=== PATIENT | female | born 1975 | race Caucasian/White ===

== ENCOUNTER → 2019-07-13 13:05 | Outpatient (POV) | payer BC, SELFPAY | PROVIDERS: Visit Provider Dermatology | DX: Z00.00 Encounter for general adult medical examination without abnormal findings (principal) ==

== ENCOUNTER → 2022-12-30 15:19 | Outpatient (CLI) | payer BC, SELFPAY ==
--- NOTE | 2022-12-30 15:28 | MR_ITS ---
FINAL REPORT CLINICAL HISTORY: right wrist pain X2 YEARS. prior surgery 2 years ago. numbness in fingers of right hand. FINDINGS: Multiplanar MR imaging of the right wrist was performed without contrast. There is 6 mm of ulnar negative variance. There is significant abnormal signal in the distal ulna with a small osteochondral lesion along its volar aspect measuring 4 mm with surrounding marrow edema. Findings are best seen on image 19 of series 10.. There is no evidence of intrinsic ligament injury. The triangular fibrocartilage is intact. The flexor and extensor tendons are intact. No soft tissue mass or cyst is identified. No focal abnormality is identified of the median nerve. IMPRESSION: Ulnar negative variance with small osteochondral lesion in the distal ulna with surrounding marrow edema. Reviewed, Interpreted and Dictated by Bryant Villalba MD Transcribed by Felice Stephens Authenticated and [facility]
== END ==
LOC: RAD 15:19
PROVIDERS: PCP Physician Assistant; Visit Provider Physician Assistant
DX: M25.531 Pain in right wrist (principal)
CPT/HCPCS: 73221

== ENCOUNTER → 2023-01-16 09:04 | Outpatient (CLI) | payer BC, SELFPAY ==
--- NOTE | 2023-01-16 09:08 | XR_ITS ---
FINAL REPORT CLINICAL HISTORY: wrist pain COMPARISON: none FINDINGS: RIGHT WRIST Three views demonstrate no acute fracture or dislocation. The visualized joint spaces are normally aligned. The soft tissues are unremarkable. IMPRESSION: No acute bony abnormality. Reviewed, Interpreted and Dictated by Armani Callahan III, MD Transcribed by Kalie Luna Authenticated and [facility]
== END ==
PROVIDERS: PCP Physician Assistant; Visit Provider Physician Assistant Surgical
DX: M25.531 Pain in right wrist (principal); Z98.890 Other specified postprocedural states
CPT/HCPCS: 73110

== ENCOUNTER → 2023-09-17 10:08 | Outpatient (CLI) | payer BC, SELFPAY ==
--- NOTE | 2023-09-17 10:08 | MR_ITS ---
FINAL REPORT CLINICAL HISTORY: RUE radiculopathy. BURNING PAIN DOWN RT ARM. HEADACHE FINDINGS: Multiplanar MR imaging of the cervical spine was performed without contrast. On the sagittal T2-weighted images, disc degeneration is seen throughout. There is no evidence of fracture. The vertebral alignment is normal. The cervical spinal cord has an unremarkable appearance without evidence of mass, edema or syrinx. No significant canal stenosis is identified. The cervicomedullary junction is normal. C2-3: There is no significant canal stenosis or neural foraminal narrowing. C3-4: Uncovertebral osteophytes are present. There is no significant canal stenosis or neural foraminal narrowing. C4-5: Small left paracentral disc protrusion is present. There is no significant canal stenosis or neural foraminal narrowing. C5-6: Disc osteophyte complex is present with moderate right and mild left neural foraminal narrowing. C6-7: An annular disc bulge is present. There is a small central disc protrusion. There is no significant canal stenosis or neural foraminal narrowing. C7-T1: Small central disc protrusion is present. There is no significant canal stenosis or neural foraminal narrowing. IMPRESSION: Multilevel disc protrusions as detailed above. Reviewed, Interpreted and Dictated by Armani Callahan III, MD Transcribed by Marcy Jean Authenticated and [facility]
== END ==
LOC: RAD 10:08
PROVIDERS: PCP Physician Assistant; Visit Provider Physician Assistant
DX: M79.2 Neuralgia and neuritis, unspecified (principal)
CPT/HCPCS: 72141; 76376

== ENCOUNTER → 2023-10-03 09:56 | Outpatient (POV) | payer BC, SELFPAY ==
[2023-10-03 10:39] VITALS: BP 117/77; PULSE 106; RESP 18; O2SAT 98; BMI 37.0
--- NOTE | 2023-10-03 11:20 | EXP.PAIN.OV ---
HPI Data of Consult Patient: new to practice Consult date: 10/03/23 Requesting Physician: Nile Damian CRNA Primary Care Provider: Heavenly Fuentes APRN Consult Narrative Reason for consult: Cervical neck pain. Right arm radicular pain. History of present illness: Ms. Rose is a 48 year old female who comes our office today for initial consultation regarding chronic cervical neck pain she describes as constant, dull, aching. Patient also complains of limited range of motion in the cervical spine with left and right rotation. Patient denies pain with flexion and/or extension. Patient also reports right arm radicular symptoms to the hand. She describes the right arm radicular symptoms as constant, dull, aching. Patient is status post right tendon transfer of the wrist. Patient states she is had pain in the wrist since surgery. However her radicular symptoms are more arm related. She rates her pain 6/10. Patient's cervical MRI shows multilevel degenerative disc with disc bulge C4-5, C5-6 and C6-7. CC: Nile Damian CRNA [facility] Disclaimer: The information contained in this section may have been updated after the patient was seen, as this information can be updated by other users. Medical History Osteochondral lesion Surgical History History of carpal tunnel surgery History of surgery on arm Hx of tonsillectomy Family History Other Diabetes Social History (Updated 10/03/23 @ 10:40 by Amita López RN) Smoking Status: Never smoker alcohol intake: never substance use type: denies use current occupational status: employed Travel in the last 8 weeks: None Meds Home Medications and Allergies Home Medications Medication Instructions Recorded Confirmed Type escitalopram oxalate 5 mg tablet 5 mg PO DAILY #30 tabs 06/18/23 10/03/23 Rx (Lexapro) gabapentin 300 mg capsule 300 mg PO BID #60 caps 09/11/23 10/03/23 Rx (Neurontin) phentermine 37.5 mg tablet 37.5 mg PO DAILY #30 tabs 09/11/23 10/03/23 Rx (Adipex-P) New Prescriptions to Start Prescriptions: Allergies Allergy/AdvReac Type Severity Reaction Status Date / Time naproxen Allergy Unknown Verified 09/11/23 10:57 allergy reaction Objective Vital signs: Pulse Resp BP Pulse Ox O2 Del Method 106 H 18 117/77 98 Room Air 10/03/23 10:39 10/03/23 10:39 10/03/23 10:39 10/03/23 10:39 10/03/23 10:39 Assessment and Plan *Assessment and plan (1) Degenerative disc disease, cervical: Status: Acute Category: Medical Code(s): M50.30 - Other cervical disc degeneration, unspecified cervical region (2) Bulge of cervical disc without myelopathy: Status: Acute Category: Medical Code(s): M50.30 - Other cervical disc degeneration, unspecified cervical region (3) Radicular pain of right upper extremity: Status: Chronic Category: Medical Code(s): M79.2 - Neuralgia and neuritis, unspecified Plan Discussed in detail with the patient regarding treatment options. I recommend physical therapy for the cervical neck pain as well as right arm radicular symptoms. Also, I will start the patient on diclofenac 75 mg 1 p.o. twice daily. Patient has negative heart history. She is taking gabapentin 300 mg 1 p.o. nightly. Patient reports gabapentin is helping to some degree. Patient will return to the clinic after completing physical therapy. We will review evaluate her symptoms at that time. I discussed with her regarding cervical epidural steroid injection in the near future. Answered her questions.
== END | disposition home or self-care (01) ==
PROVIDERS: PCP Nurse Practitioner; Visit Provider Nurse Anesthetist, Certified Registered
DX: M50.30 Other cervical disc degeneration, unspecified cervical region (principal); M79.2 Neuralgia and neuritis, unspecified; M50.20 Other cervical disc displacement, unspecified cervical region
CPT/HCPCS: 99202; G0463

== ENCOUNTER 2023-11-20 15:00 | Outpatient (RCR) | payer BC, SELFPAY | END 2023-11-20 16:00 | disposition home or self-care (01) | LOC: PT 15:00 | PROVIDERS: PCP Physician Assistant; Visit Provider Nurse Practitioner Family | DX: M50.222 Other cervical disc displacement at C5-C6 level (principal); M50.223 Other cervical disc displacement at C6-C7 level; M79.601 Pain in right arm | CPT/HCPCS: 97010; 97014; 97110; 97163; 97530; G0283 ==

== ENCOUNTER 2023-12-17 13:04 | Outpatient (CLI) | payer BC, SELFPAY ==
[2023-12-17 21:30] LABS: Amphetamine/Metha Screen,Urine Negative ng/ml (<1000); Barbiturates Screen,Urine Negative ng/ml (<200); Benzodiazepines Screen,Urine Negative ng/ml (<200); Cannabinoid Screen,Urine Negative ng/ml (<50); Cocaine Screen,Urine Negative ng/ml (<300); Methadone Screen,Urine Negative ng/ml (<300); Opiate Screen,Urine Negative ng/ml (<300); Phencyclidine Screen,Urine Negative ng/ml (<25)
[2023-12-21 17:23] LABS: Gabapentin,Urine 18.9 ug/mL (.)
== END 2023-12-17 23:59 ==
LOC: LAB.DROPOF 13:04
PROVIDERS: PCP Physician Assistant; Visit Provider Physician Assistant
DX: M51.16 Intervertebral disc disorders with radiculopathy, lumbar region (principal); M50.30 Other cervical disc degeneration, unspecified cervical region; Z79.899 Other long term (current) drug therapy
CPT/HCPCS: 80307

== ENCOUNTER → 2023-12-25 14:05 | Outpatient (POV) | payer BC, SELFPAY ==
--- NOTE | 2023-12-25 14:12 | EXP.PAIN.SOA ---
[facility] Pain Management SOAP Note Subjective:: Patient is a pleasant 48-year-old female who presents today for worsening pain. We are currently treating the patient for degenerative disc disease of cervical spine with cervical radiculopathy symptoms, right wrist pain, low back pain with right leg pain. Today she rates her pain an aching, throbbing sensation that is worse with increased activity. Patient states that she does have pain all up around her right shoulder blade as well. 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 Patient states that in the past she did have carpal tunnel surgery on the right hand and it helped some however it progressively has worsened and is now into her left as well. Patient states she has been tested for carpal tunnel on the left side and has some but does believe a lot of her symptoms are related to her cervical spine. Patient states the pain is interfering with her ability perform activities of daily living such as cooking and cleaning or even doing her daily job. Previously the patient was started on diclofenac however she stated that she does not notice any additional improvement with this. Patient has tried and failed conservative treatment such as oral medications including gabapentin, Tylenol and ibuprofen along with heat and ice and topicals. Patient did complete her physical therapy for her neck and upper extremity pain however had no additional improvement. Patient has continued to try and do exercise and stretching with minimal relief. Patient is interested in any help we may be able to provide. Her Aftab has been reviewed and is appropriate. Review of Systems: General: No recent weight changes, no fever, no sleep disturbances Respiratory: No cough, no shortness of air, no recurring pulmonary infections Cardiovascular/peripheral vascular: No chest pain, no palpitations, no edema, no shortness of breath Gastrointestinal: No new onset incontinence, normal bowel movements reported Genitourinary: No new onset incontinence Musculoskeletal: Neck pain, upper extremity pain/numbness Psychiatric: [Normal mood/affect] Neurological: [Denies weakness in extremities], [denies balance issues] Objective:: Physical Exam: General: Alert and oriented x3, no acute distress, pleasant and cooperative Lungs: Respirations even and unlabored, symmetrical chest expansion Eyes: PERRL Musculoskeletal: Flexion and extension of cervical [spine] somewhat guarded secondary to pain, [antalgic gait noted] Neurological: Speech clear, no gross sensory deficit FINAL REPORT CLINICAL HISTORY: RUE radiculopathy. BURNING PAIN DOWN RT ARM. HEADACHE FINDINGS: Multiplanar MR imaging of the cervical spine was performed without contrast. On the sagittal T2-weighted images, disc degeneration is seen throughout. There is no evidence of fracture. The vertebral alignment is normal. The cervical spinal cord has an unremarkable appearance without evidence of mass, edema or syrinx. No significant canal stenosis is identified. The cervicomedullary junction is normal. C2-3: There is no significant canal stenosis or neural foraminal narrowing. C3-4: Uncovertebral osteophytes are present. There is no significant canal stenosis or neural foraminal narrowing. C4-5: Small left paracentral disc protrusion is present. There is no significant canal stenosis or neural foraminal narrowing. C5-6: Disc osteophyte complex is present with moderate right and mild left neural foraminal narrowing. C6-7: An annular disc bulge is present. There is a small central disc protrusion. There is no significant canal stenosis or neural foraminal narrowing. C7-T1: Small central disc protrusion is present. There is no significant canal stenosis or neural foraminal narrowing. IMPRESSION: Multilevel disc protrusions as detailed above. Reviewed, Interpreted and Dictated by Armani Callahan III, MD Transcribed by Marcy Jean Authenticated and [facility] Assessment:: Degenerative disc disease of cervical spine with cervical radiculopathy symptoms, right wrist pain, low back pain with right leg pain Plan:: Patient is experiencing worsening pain in her neck and upper extremities with numbness and tingling and swelling of these extremities. Patient did have decreased preparation plant repairer during today's exam and self-reports weakness. I have discussed with the patient due to her limited range of motion of her cervical spine and she may benefit from a cervical epidural steroid injection. Risk and benefits were discussed with the patient and she would like to proceed forward with this plan of care. Patient has tried and failed conservative treatment such as oral medication, heat and ice, topicals, physical therapy, at home stretching exercise for longer than 6 weeks. I will also order the patient a compounded cream. We will schedule the patient for a JUHI C5-C6 under fluoroscopy. Patient has been instructed to contact the clinic with any concerns before the next appointment. Dr. Rico has reviewed this note and agrees with this plan of care. This note was dictated using voice recognition software and make contain errors or omissions. [facility] Disclaimer: The information contained in this section may have been updated after the patient was seen, as this information can be updated by other users. Medical History Osteochondral lesion Surgical History History of carpal tunnel surgery History of surgery on arm Hx of tonsillectomy Family History Other Diabetes Social History Smoking Status: Never smoker alcohol intake: never substance use type: denies use current occupational status: employed Travel in the last 8 weeks: None
[2023-12-25 15:41] VITALS: BP 132/79; PULSE 73; RESP 18; O2SAT 100; BMI 39.2
== END ==
LOC: SC.PAIN 14:05
PROVIDERS: PCP Nurse Practitioner Family; Visit Provider Nurse Practitioner Family
DX: M50.122 Cervical disc disorder at C5-C6 level with radiculopathy (principal); M25.531 Pain in right wrist; M54.50 Low back pain, unspecified; M79.604 Pain in right leg
CPT/HCPCS: 99212; G0463

== ENCOUNTER 2024-01-06 12:32 | Day surgery (SDC) | payer BC, SELFPAY ==
[2024-01-06 13:00] VITALS: BP 140/71; PULSE 79; RESP 18; TEMP 36.4; O2SAT 100; BMI 39.2
[2024-01-06 13:01] VITALS: BP 153/95; PULSE 65; PULSE 72; RESP 18; O2SAT 98; O2SAT 99
[2024-01-06] MEDS: methylPREDNISolone ACETATE 80MG/ML VIAL 80 MG (13:03)
--- NOTE | 2024-01-06 13:10 | P.PCN_ITS ---
Procedure Date: 01/06/24 Time: 13:00 Anesthesiologist:: Nile Damian CRNA Complications:: None Pre-procedure Diagnosis:: Degenerative disc cervical spine multiple levels. Cervical radiculopathy. Post-procedure Diagnosis:: Same. Indications for Procedure:: Patient is a very pleasant 48-year-old female comes our clinic today for a cervical epidural steroid injection. Patient's main complaint is posterior cervical neck pain with bilateral arm radicular symptoms. 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 Her job involves a lot of lifting pulling and moving heavy objects to clean under. She rates her pain today 7/10. Procedure Details:: Procedure:Cervical epidural steroid injection Informed consent was obtained and the risks and benefits of the procedure were explained to the patient. The patient was taken to the procedure room and noninvasive monitors placed, including noninvasive blood pressure cuff and pulse oximeter. The neck was prepped using Chloraprep as a cleansing solution. The C6- C7 interspace was viewed using fluroscopy. The skin and subcutaneous tissues were anesthetized using lidocaine 1.5% and a 25-gauge needle. After this an 18- gauge Touhy epidural needle was placed into the C6-C7 interspace under fluroscopy guidance and advanced using loss of resistance to air until the epidural space was encountered. After confirmation of needle placement in the epidural space using contrast dye, a solution containing normal saline, 2 mL and Depo-Medrol 80 mg was incrementally injected into the cervical epidural space.~ The patient tolerated the procedure well with no complications. The patient was observed in the Pain Clinic and then discharged home neurologically intact. Plan and Disposition:: Patient was discharged without incident.
[2024-01-06] MEDS: IOPAMIDOL-200 (41%);10ML VIAL 10 ML IV (13:15)
[2024-01-06 13:16] VITALS: BP 137/78; PULSE 64; RESP 16; O2SAT 100
== END 2024-01-06 13:16 | disposition home or self-care (01) ==
PROVIDERS: PCP Nurse Practitioner Family; Visit Provider Nurse Anesthetist, Certified Registered
DX: M50.123 Cervical disc disorder at C6-C7 level with radiculopathy (principal)
CPT/HCPCS: 62321; J1040; Q9966

== ENCOUNTER → 2024-01-21 09:26 | Outpatient (POV) | payer BC, SELFPAY ==
--- NOTE | 2024-01-21 09:59 | A.OFFVIS_ITS ---
[facility] Pain Management SOAP Note Subjective:: Patient is a pleasant 49-year-old female who presents today for follow-up cervical epidural C6-C7 on 01/06/2024. We are currently treating the patient for degenerative disc disease of cervical spine with cervical radiculopathy symptoms, right wrist pain, low back pain with right leg pain. Today she rates her pain a 6 out of 10. Patient states she has had at least 60% improvement following this injection and it it has definitely decreased her overall pain. Patient states that she still has the neck and arm symptoms however it is not as severe and much more manageable. Patient states she has been able to increase her activity with decreased pain there at her neck. Patient does state the majority of her pain today still remains in her low back with radiating symptoms down her entire right leg. This has been going on for several years and progressively worsened over time. She states the pain goes all the way down into her right foot along the side. 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 Patient does describe this as an aching, throbbing sensation with numbness and tingling down that extremity. She states the pain does interfere with her ability perform activities of daily living such as cooking and cleaning. Patient is interested if we can do anything for this pain. She states that in the past she has had some imaging but it has been sometime. Patient has continued to try Tylenol and ibuprofen along with heat and ice and topicals. Patient did get the compounded cream and states that she is not necessarily notice significant relief just yet. Patient has had physical therapy in the past with no additional improvement. Patient did continue to do exercise and stretching at home with minimal relief. Her Aftab has been reviewed and is appropriate. Review of Systems: General: No recent weight changes, no fever, no sleep disturbances Respiratory: No cough, no shortness of air, no recurring pulmonary infections Cardiovascular/peripheral vascular: No chest pain, no palpitations, no edema, no shortness of breath Gastrointestinal: No new onset incontinence, normal bowel movements reported Genitourinary: No new onset incontinence Musculoskeletal: Low back pain, right leg pain Psychiatric: [Normal mood/affect] Neurological: [Denies weakness in extremities], [denies balance issues] Objective:: Physical Exam: General: Alert and oriented x3, no acute distress, pleasant and cooperative Lungs: Respirations even and unlabored, symmetrical chest expansion Eyes: PERRL Musculoskeletal: Flexion and extension of lumbar [spine] somewhat guarded secondary to pain, [antalgic gait noted] positive right leg raise with decreased sensation to light touch and decreased reflexes Neurological: Speech clear, no gross sensory deficit Assessment:: Degenerative disc disease of cervical and lumbar spine with cervical and lumbar radiculopathy symptoms, right leg pain Plan:: Patient is experiencing worsening pain in her low back with radiating symptoms down her entire right extremity. Patient did have limited range of motion of her lumbar spine along with a positive right leg raise and decreased sensation to light touch and decreased reflexes. I have discussed with the patient that she may benefit from a right transforaminal epidural steroid injection. Risk and benefits were discussed with the patient and she would like to proceed forward with this plan of care. Patient is not on any blood thinners. Patient has tried and failed conservative therapy such as oral medication, heat and ice, topicals, physical therapy, at home stretching exercise for longer than 6 weeks. We will schedule the patient for a right transforaminal epidural steroid injection L4-L5 and L5-S1 under fluoroscopy. Patient has been instructed to contact the clinic with any concerns before the next appointment. Dr. Rico has reviewed this note and agrees with this plan of care. This note was dictated using voice recognition software and make contain errors or omissions. [facility] Disclaimer: The information contained in this section may have been updated after the patient was seen, as this information can be updated by other users. Medical History Body mass index [BMI] 40.0-44.9, adult Osteochondral lesion Surgical History History of carpal tunnel surgery History of surgery on arm Hx of tonsillectomy Family History Other Diabetes Social History Smoking Status: Never smoker alcohol intake: never substance use type: denies use current occupational status: employed Travel in the last 8 weeks: None
[2024-01-21 12:28] VITALS: BP 129/54; PULSE 83; RESP 18; O2SAT 100; BMI 39.2
[2024-01-21 17:35] LABS: Alanine Aminotransferase 31 U/L (12-78); Albumin Level 3.9 g/dl (3.5-5.0); Albumin/Globulin Ratio 1.4 (1.1-1.8); Alkaline Phosphatase 116 U/L (38-126); Anion Gap 10.5 mEq/L (5-15); Aspartate Amino Transferase 27 U/L (14-36); Bilirubin,Total 0.6 mg/dl (0.2-1.3); Blood Urea Nitrogen 16 mg/dl (7-17); Calcium 8.7 mg/dl (8.4-10.2); Carbon Dioxide 26 mmol/L (22.0-30.0); Chloride 106 mmol/L (98-107); Estimated Glomerular Filt Rate 89 ml/min (>60); GFR (African American) 107 ML/MIN (>60); Globulin 2.7 g/dL (1.3-3.2); Glucose 89 mg/dl (74-100); Potassium 4.5 mmoL/L (3.5-5.1); Sodium 138 mmol/L (136-145); Total Protein,Serum 6.6 g/dl (6.3-8.2)
[2024-01-21 18:06] LABS: Thyroid Stimulating Hormone 2.02 uIU/mL (0.465-4.68)
[2024-01-21 18:25] LABS: Vitamin B12 496 pg/mL (239-931)
[2024-01-21 19:15] LABS: Hemoglobin A1C 5.8 % (4.0-6.0)
== END ==
LOC: SC.PAIN 09:26
PROVIDERS: PCP Nurse Practitioner Family; Visit Provider Nurse Practitioner Family
DX: M50.123 Cervical disc disorder at C6-C7 level with radiculopathy (principal); M51.16 Intervertebral disc disorders with radiculopathy, lumbar region; M79.604 Pain in right leg
CPT/HCPCS: 80053; 82607; 83036; 84443; 99212; G0463

== ENCOUNTER 2024-01-21 10:28 | Outpatient (CLI) | payer BC, SELFPAY | END 2024-01-21 23:59 | LOC: LAB.DROPOF 01-23 10:28 | PROVIDERS: PCP Nurse Practitioner Family; Visit Provider Nurse Practitioner Family | DX: M50.30 Other cervical disc degeneration, unspecified cervical region (principal) | CPT/HCPCS: 80053; 82607; 83036; 84443 ==

== ENCOUNTER 2024-03-16 13:06 | Day surgery (SDC) | payer BC, SELFPAY ==
[2024-03-16 13:22] VITALS: BP 142/74; PULSE 78; RESP 18; TEMP 36.8; O2SAT 99; BMI 41.0
[2024-03-16 13:32] VITALS: BP 122/74; PULSE 75; RESP 18; O2SAT 98
[2024-03-16] MEDS: LIDOCAINE 1% 5ML PF VIAL 5 ML (13:32)
[2024-03-16 13:33] VITALS: BP 122/74; PULSE 75; RESP 18; O2SAT 98
[2024-03-16] MEDS: IOPAMIDOL-200 (41%);10ML VIAL 10 ML IV (13:35)
--- NOTE | 2024-03-16 13:35 | P.PCN_ITS ---
Procedure Date: 03/16/24 Time: 13:20 Anesthesiologist:: Nile Damian CRNA Complications:: None Pre-procedure Diagnosis:: Degenerative disc lumbar spine multilevels. Lumbar radiculopathy. Post-procedure Diagnosis:: Same. Indications for Procedure:: Patient is a very pleasant 49-year-old female that comes our clinic today for right L4-5, L5-S1 transforaminal epidural steroid injection. Patient reports low lumbar back pain. Also, right hip and leg radicular symptoms to the foot. She rates her pain 7/10. Procedure Details:: Details of the procedure were explained to the patient. The patient was taken the procedure room placed in the prone position. The area of the lumbar spine was cleansed using chlorhexidine as a cleansing solution. At this time using fluoroscopy guidance markers were placed on the right lateral border of the L4 and L5 vertebral body. The skin and subcutaneous tissue was anesthetized using 1% lidocaine and 25-gauge needle. At this time using a 22-gauge 3-1/2 inch spinal needle the right upper one third of the L4-5 foramen was accessed. The same was done at the right L5-S1 foramen. Needle positions were confirmed and a lateral view using fluoroscopy and contrast dye. At this time 1 cc of 1% lidoca ine +20 mg of Depo-Medrol was injected at each level after negative aspiration. [place] were removed. Band-Aid applied. Patient tolerated the procedure without difficulty. There are no complications. Plan and Disposition:: Patient was discharged without incident.
[2024-03-16 13:36] VITALS: BP 153/82; PULSE 74; RESP 16; O2SAT 98
== END 2024-03-16 13:36 | disposition home or self-care (01) ==
PROVIDERS: PCP Nurse Practitioner Family; Visit Provider Nurse Anesthetist, Certified Registered
DX: M51.16 Intervertebral disc disorders with radiculopathy, lumbar region (principal)
CPT/HCPCS: 64483; 64484; J1010; Q9966

== ENCOUNTER 2024-04-01 10:29 | Outpatient (POV) | payer BC, SELFPAY | END 2024-04-01 23:59 | disposition home or self-care (01) | LOC: SC.PAIN 10:29 | PROVIDERS: Visit Provider Nurse Practitioner Family | DX: M51.36 Other intervertebral disc degeneration, lumbar region (principal); M54.16 Radiculopathy, lumbar region | CPT/HCPCS: 99212; G0463 ==

== ENCOUNTER 2024-05-01 07:58 | Outpatient (CLI) | payer BC, SELFPAY ==
--- NOTE | 2024-05-01 08:18 | MR_ITS ---
FINAL REPORT CLINICAL HISTORY: . FINDINGS: Multiplanar MR imaging of the lumbar spine was performed without contrast. On the sagittal T2-weighted images, multilevel disc degeneration is seen. There is disc space narrowing with moderate endplate changes at L5-S1. The vertebral alignment is normal. There is no evidence of fracture. No bony mass is identified. The conus is seen at approximately the L1 level and has an unremarkable appearance. L1-2: There is no significant canal stenosis or neural foraminal narrowing. L2-3: There is an annular disc bulge and facet arthropathy without significant canal stenosis or neural foraminal narrowing. L3-4: Annular disc bulge and facet arthropathy with mild bilateral neuroforaminal narrowing. L4-5: Annular disc bulge and facet arthropathy with mild bilateral neuroforaminal narrowing. L5-S1: Annular disc bulge and facet arthropathy and osteophytes. There is mild right and moderate left neuroforaminal narrowing. IMPRESSION: Multilevel degenerative disc disease with mild to moderate neuroforaminal narrowing as above. Reviewed, Interpreted and Dictated by Armani Callahan III, MD Transcribed by Lupis Lan Authenticated and [facility]
== END 2024-05-01 23:59 | disposition home or self-care (01) ==
LOC: RAD 08:00
PROVIDERS: PCP Nurse Practitioner Family; Visit Provider Nurse Practitioner Family
DX: M54.59 Other low back pain (principal)
CPT/HCPCS: 72148; 76376

== ENCOUNTER 2024-05-03 16:36 | Outpatient (CLI) | payer BC, SELFPAY ==
[2024-05-03 16:12] LABS: Alanine Aminotransferase 33 U/L (12-78); Albumin Level 3.9 g/dl (3.5-5.0); Albumin/Globulin Ratio 1.4 (1.1-1.8); Alkaline Phosphatase 90 U/L (38-126); Anion Gap 14.3 mEq/L (5-15); Aspartate Amino Transferase 26 U/L (14-36); Bilirubin,Total 0.7 mg/dl (0.2-1.3); Blood Urea Nitrogen 13 mg/dl (7-17); Calcium 8.9 mg/dl (8.4-10.2); Carbon Dioxide 26 mmol/L (22.0-30.0); Chloride 103 mmol/L (98-107); Estimated Glomerular Filt Rate 66 ml/min (>60); GFR (African American) 80 ML/MIN (>60); Globulin 2.8 g/dL (1.3-3.2); Glucose 93 mg/dl (74-100); Potassium 4.3 mmoL/L (3.5-5.1); Sodium 139 mmol/L (136-145); Total Protein,Serum 6.7 g/dl (6.3-8.2)
[2024-05-03 16:14] LABS: 25-OH Vitamin D, Total 34.4 ng/mL (30-100)
[2024-05-03 16:16] LABS: Hemoglobin A1C 5.3 % (4.0-6.0)
[2024-05-03 16:43] LABS: Thyroid Stimulating Hormone 1.33 uIU/mL (0.465-4.68)
== END 2024-05-03 23:59 | disposition home or self-care (01) ==
LOC: LAB.DROPOF 16:37
PROVIDERS: PCP Nurse Practitioner Family; Visit Provider Nurse Practitioner Family
DX: R11.2 Nausea with vomiting, unspecified (principal); R19.7 Diarrhea, unspecified; R63.5 Abnormal weight gain; Z68.41 Body mass index [BMI] 40.0-44.9, adult; Z86.19 Personal history of other infectious and parasitic diseases
CPT/HCPCS: 80053; 82306; 83036; 84443

== ENCOUNTER 2024-05-10 15:53 | Outpatient (CLI) | payer BC, SELFPAY ==
--- NOTE | 2024-05-10 16:02 | XR_ITS ---
FINAL REPORT CLINICAL HISTORY: LOWER BACK PAIN RADIATES DOWN RIGHT LEG COMPARISON: None FINDINGS: LUMBOSACRAL SPINE SERIES Five views of the lumbosacral spine were obtained. There is no fracture present. There is no malalignment. There is mild diffuse degenerative disc disease. Mild endplate spurring is noted. There is moderate facet arthropathy. IMPRESSION: Degenerative changes. Reviewed, Interpreted and Dictated by Jonathon Aviles MD Transcribed by Kalie Luna Authenticated and [facility]
== END 2024-05-10 23:59 | disposition home or self-care (01) ==
LOC: RAD 15:56
PROVIDERS: PCP Nurse Practitioner Family; Visit Provider Nurse Practitioner Family
DX: M54.50 Low back pain, unspecified (principal)
CPT/HCPCS: 72110

== ENCOUNTER 2024-05-12 09:06 | Outpatient (POV) | payer BC, SELFPAY ==
[2024-05-12 09:21] VITALS: BP 105/68; PULSE 65; RESP 16; O2SAT 98; BMI 41.1
--- NOTE | 2024-05-12 09:53 | EXP.PAIN.SOA ---
[facility] Pain Management SOAP Note Subjective:: 49-year-old female who presents today for lumbar MRI follow-up. Today she rates her pain a 3 out of 10 however states that we will go up to a 6 out of 10 or higher with increased activity or movement. Patient states she does still have a lot of pain all within her low back and along her right hip. Patient states it does go into her buttocks area and describes it as an aching, throbbing sensation with burning occasionally. Patient does state the pain interferes with her ability perform activities of daily living such as cooking and cleaning. Patient does also state that she also still has issues with her right shoulder as well as neck pain along the right side and right arm numbness and tingling. Patient does state that the low back issue is bothering her worse than the upper neck issue. Patient is interested in anything we can try. Her Aftab has been reviewed and is appropriate. Review of Systems: General: No recent weight changes, no fever, no sleep disturbances Respiratory: No cough, no shortness of air, no recurring pulmonary infections Cardiovascular/peripheral vascular: No chest pain, no palpitations, no edema, no shortness of breath Gastrointestinal: No new onset incontinence, normal bowel movements reported Genitourinary: No new onset incontinence Musculoskeletal: Low back pain, right hip pain, right buttocks pain Psychiatric: [Normal mood/affect] Neurological: [Denies weakness in extremities], [denies balance issues] Objective:: Physical Exam: General: Alert and oriented x3, no acute distress, pleasant and cooperative Lungs: Respirations even and unlabored, symmetrical chest expansion Eyes: PERRL Musculoskeletal: Flexion and extension of lumbar [spine] somewhat guarded secondary to pain, [antalgic gait noted] point tenderness along right SI with positive right Gloria's, Jose David's, Gaenslen's, compression and distraction exam Neurological: Speech clear, no gross sensory deficit Assessment:: Degenerative disc disease of cervical and lumbar spine with cervical and lumbar radiculopathy symptoms, right leg pain, sacroiliitis Plan:: Patient is experiencing worsening pain in her low back and right hip with point tenderness along her right SI and a positive right Gloria's, Jose David's, Gaenslen's, compression and distraction exam. I discussed with patient that she may benefit from a right SI injection. Patient has tried and failed conservative therapies including continued at home exercising and stretching for longer than 6 weeks between injections. I have also discussed with the patient that she may benefit from diclofenac 75 mg twice a day with a 14-day supply. Patient was counseled to discontinue her ibuprofen 800 mg while taking this medication. Patient is agreeable to this plan of care. Patient will be scheduled for an right SI injection under fluoroscopy. I did also discussed with patient in future we may do a cervical epidural for her neck and right arm symptoms. Patient has been instructed to contact the clinic with any concerns before the next appointment. Dr. Rico has reviewed this note and agrees with this plan of care. This note was dictated using voice recognition software and make contain errors or omissions. [facility] Disclaimer: The information contained in this section may have been updated after the patient was seen, as this information can be updated by other users. Medical History Body mass index [BMI] 40.0-44.9, adult Osteochondral lesion Surgical History History of carpal tunnel surgery Hx of tonsillectomy History of surgery on arm Family History Other Diabetes Social History Smoking Status: Never smoker alcohol intake: never substance use type: denies use current occupational status: employed Travel in the last 8 weeks: None
== END 2024-05-12 23:59 | disposition home or self-care (01) ==
PROVIDERS: PCP Nurse Practitioner Family; Visit Provider Nurse Practitioner Family
DX: M50.10 Cervical disc disorder with radiculopathy, unspecified cervical region (principal); M51.16 Intervertebral disc disorders with radiculopathy, lumbar region; M79.604 Pain in right leg; M46.1 Sacroiliitis, not elsewhere classified
CPT/HCPCS: 99212; G0463

== ENCOUNTER 2024-06-01 08:40 | Day surgery (SDC) | payer BC, SELFPAY ==
[2024-06-01 08:45] VITALS: BP 126/67; PULSE 87; RESP 18; O2SAT 99; BMI 40.8
[2024-06-01] MEDS: BUPIVACAINE 0.25% 10ML INJ 25 MG IJ (09:04)
[2024-06-01] MEDS: LIDOCAINE 1% 5ML PF VIAL 5 ML (09:04)
[2024-06-01 09:05] VITALS: BP 118/66; PULSE 81; RESP 18; O2SAT 97
[2024-06-01] MEDS: methylPREDNISolone ACETATE 80MG/ML VIAL 80 MG (09:05)
[2024-06-01 09:06] VITALS: BP 118/66; PULSE 81; RESP 18; O2SAT 97
[2024-06-01 09:07] VITALS: BP 115/63; PULSE 79; RESP 18; O2SAT 100
--- NOTE | 2024-06-01 09:07 | EXP.PAIN.PRO ---
Procedure Date: 06/01/24 Time: 08:50 Anesthesiologist:: Nile Damian CRNA Complications:: None Pre-procedure Diagnosis:: Right sacroiliitis Post-procedure Diagnosis:: Same Indications for Procedure:: Patient is a pleasant 49-year-old female comes our clinic today for repeat right sacroiliac joint injection of cortisone. Patient reports significant improvement in terms of her right low lumbar back pain as well as right posterior hip pain with previous injections at the same location. Today, she describes her pain as constant, dull, aching, sharp and stabbing at times in the right low lumbar back as well as right posterior hip area. Upon examination she has extreme point tenderness over the right sacroiliac joint. She rates her pain 7/10. Procedure Details:: Procedure: Right sacroliliac joint injection under fluoroscopy Informed consent was obtained and the risk and benefits of the procedure were explained to the patient.~ The patient was taken to the procedure room and noninvasive monitors were placed including noninvasive blood pressure cuff and pulse oximeter.~ The patient was placed prone on the procedure table.~ The~ right hip was cleansed using Betadine as a cleansing solution.~ C-arm fluorosocpy was used to view the right SI joint.~ The skin and subcutaneous tissues were anesthetized using Lidocaine 1.5% and a 25-gauge needle.~ After this, a 22-gauge spinal needle was inserted under fluoroscopic guidance into the inferior aspect of the right SI joint.~ Omnipaque dye was injected and a good spread was seen throughout the joint.~ After this, approximately 5 mL of bupivacaine 0.25% and Depo-Medrol 40 mg was incrementally injected into the sacroiliac joint.~ The patient tolerated the procedure well with no complications.~ The patient was observed in the Pain Clinic, then discharged home neurologically intact.~ Plan and Disposition:: Patient was discharged without incident.
== END 2024-06-01 09:07 | disposition home or self-care (01) ==
PROVIDERS: PCP Nurse Practitioner Family; Visit Provider Nurse Anesthetist, Certified Registered
DX: M46.1 Sacroiliitis, not elsewhere classified (principal)
CPT/HCPCS: 27096; G0260; J1010

== ENCOUNTER 2024-09-27 10:30 | Outpatient (CLI) | payer BC, SELFPAY ==
[2024-09-27 13:47] LABS: Alanine Aminotransferase 23 U/L (12-78); Albumin Level 4.3 g/dl (3.5-5.0); Albumin/Globulin Ratio 1.7 (1.1-1.8); Alkaline Phosphatase 81 U/L (38-126); Anion Gap 8.8 mEq/L (5-15); Aspartate Amino Transferase 25 U/L (14-36); Bilirubin,Total 0.6 mg/dl (0.2-1.3); Blood Urea Nitrogen 11 mg/dl (7-17); Calcium 9.3 mg/dl (8.4-10.2); Carbon Dioxide 28 mmol/L (22.0-30.0); Chloride 105 mmol/L (98-107); Chol/HDL Ratio 3.2 (1-3.5); Cholesterol 169 mg/dl (140-200); Estimated Glomerular Filt Rate 66 ml/min (>60); GFR (African American) 80 ML/MIN (>60); Globulin 2.5 g/dL (1.3-3.2); Glucose 80 mg/dl (74-100); HDL Cholesterol 53 mg/dl (40-60); Potassium 4.8 mmoL/L (3.5-5.1); Sodium 137 mmol/L (136-145); Total Protein,Serum 6.8 g/dl (6.3-8.2); Triglycerides 85 mg/dl (30-150); VLDL Cholesterol 17 mg/dL (0-40)
[2024-09-27 13:58] LABS: Direct LDL Cholesterol 91.94 mg/dL (100-129)
[2024-09-27 15:00] LABS: Hemoglobin A1C 4.9 % (4.0-6.0)
== END 2024-09-27 23:59 | disposition home or self-care (01) ==
LOC: LAB.DROPOF 09-28 11:20
PROVIDERS: PCP Nurse Practitioner Family; Visit Provider Nurse Practitioner Family
DX: R63.5 Abnormal weight gain (principal); Z13.1 Encounter for screening for diabetes mellitus; Z13.220 Encounter for screening for lipoid disorders; Z68.36 Body mass index [BMI] 36.0-36.9, adult
CPT/HCPCS: 80053; 80061; 83036

== ENCOUNTER 2025-04-20 11:34 | Outpatient (CLI) | payer BC, SELFPAY ==
--- NOTE | 2025-04-20 11:30 | CA_ITS ---
FINAL REPORT TECHNIQUE: Ultrasound images of the deep venous system were obtained from the left groin to the calf veins. CLINICAL HISTORY: painful knot on lateral posterior left thigh, Varicosities. FINDINGS: The deep venous system is normally compressible. Normal flow is identified. There is a hyperechoic focus in the lateral left thigh measuring 1 cm in greatest dimension, may represent small lipoma. This does not represent a cyst. No flow is seen. IMPRESSION: No evidence of left lower extremity DVT. Probable small lipoma. Reviewed, Interpreted and Dictated by Bryant Villalba MD Transcribed by Marcy Jean Authenticated and [facility]
--- OUTSIDE RECORDS SUMMARY | 2025-04-20 11:35 | XMS_ITS ---
Author Organization Unknown Medications Medication Instructions Effective Dates (start - stop) Status escitalopram 10 MG Oral Tablet 2 [id number]:00:00.000+00:0 0 - Completed ondansetron 4 MG Oral Tablet 01-23-1500:00:00.000+00:0 0 - Completed celecoxib 200 MG Oral Capsule 16-01-0800:00:00.000+00:0 0 - Completed phentermine hydrochloride 37 .5 MG Oral Tablet [id number]:00:00.000+00:0 0 - Completed cyclobenzaprine hydrochlorid e 10 MG Oral Tablet [id number]:00:00.000+00:0 0 - Completed gabapentin 100 MG Oral Capsule 2 320-82-60S36:00:00.000+00:0 0 - Completed diclofenac sodium 75 MG Wanda yed Release Oral Tablet [id number]:00:00.000+00:0 0 - Completed gabapentin 100 MG Oral Capsule 2 [id number]:00:00.000+00:0 0 - Completed phentermine hydrochloride 37 .5 MG Oral Tablet [id number]:00:00.000+00:0 0 - Completed phentermine hydrochloride 37 .5 MG Oral Tablet [id number]:00:00.000+00:0 0 - Completed escitalopram 5 MG Oral Tablet 15-04-01:00:00.000+00:0 0 - Completed amoxicillin 875 MG / clavula marilu 125 MG Oral Tablet [id number]:00:00.000+00:0 0 - Completed Patient Care team information Name Category Status Period Participants - - Proposed period not known -
== END 2025-04-20 23:59 | disposition home or self-care (01) ==
PROVIDERS: PCP Nurse Practitioner Family; Visit Provider Nurse Practitioner Family
DX: I83.93 Asymptomatic varicose veins of bilateral lower extremities (principal); R93.6 Abnormal findings on diagnostic imaging of limbs
CPT/HCPCS: 93971

== ENCOUNTER 2025-05-10 09:29 | Outpatient (CLI) | payer BC, SELFPAY ==
[2025-05-10 17:26] LABS: Alanine Aminotransferase 24 U/L (12-78); Albumin Level 4.4 g/dl (3.5-5.0); Albumin/Globulin Ratio 1.6 (1.1-1.8); Alkaline Phosphatase 100 U/L (38-126); Anion Gap 9.5 mEq/L (5-15); Aspartate Amino Transferase 27 U/L (14-36); Bilirubin,Total 0.8 mg/dl (0.2-1.3); Blood Urea Nitrogen 14 mg/dl (7-17); Calcium 9.7 mg/dl (8.4-10.2); Carbon Dioxide 28 mmol/L (22.0-30.0); Chloride 104 mmol/L (98-107); Chol/HDL Ratio 2.8 (1-3.5); Cholesterol 178 mg/dl (140-200); Estimated Glomerular Filt Rate 76 ml/min (>60); GFR (African American) 92 ML/MIN (>60); Globulin 2.8 g/dL (1.3-3.2); Glucose 84 mg/dl (74-100); HDL Cholesterol 63 mg/dl (40-60); Potassium 4.5 mmoL/L (3.5-5.1); Sodium 137 mmol/L (136-145); Total Protein,Serum 7.2 g/dl (6.3-8.2); Triglycerides 62 mg/dl (30-150); VLDL Cholesterol 12 mg/dL (0-40)
--- OUTSIDE RECORDS SUMMARY | 2025-05-11 10:37 | XMS_ITS ---
Author Organization Unknown Medications Medication Instructions Effective Dates (start - stop) Status escitalopram 10 MG Oral Tablet 2 [id number]:00:00.000+00:0 0 - Completed ondansetron 4 MG Oral Tablet 01-23-1500:00:00.000+00:0 0 - Completed celecoxib 200 MG Oral Capsule 16-01-0800:00:00.000+00:0 0 - Completed phentermine hydrochloride 37 .5 MG Oral Tablet [id number]:00:00.000+00:0 0 - Completed cyclobenzaprine hydrochlorid e 10 MG Oral Tablet [id number]:00:00.000+00:0 0 - Completed gabapentin 100 MG Oral Capsule 2 181-99-49H56:00:00.000+00:0 0 - Completed diclofenac sodium 75 MG Wanda yed Release Oral Tablet [id number]:00:00.000+00:0 0 - Completed gabapentin 100 MG Oral Capsule 2 [id number]:00:00.000+00:0 0 - Completed phentermine hydrochloride 37 .5 MG Oral Tablet [id number]:00:00.000+00:0 0 - Completed phentermine hydrochloride 37 .5 MG Oral Tablet [id number]:00:00.000+00:0 0 - Completed escitalopram 5 MG Oral Tablet 15-04-01:00:00.000+00:0 0 - Completed amoxicillin 875 MG / clavula marilu 125 MG Oral Tablet [id number]:00:00.000+00:0 0 - Completed Patient Care team information Name Category Status Period Participants - - Proposed period not known -
--- OUTSIDE RECORDS SUMMARY | 2025-05-11 10:37 | XMS_ITS | Data Portability ---
Author Organization [facility] [place] [facility] Address [address] [place] [address] Care Team Providers Care Exchange Teller Name Role Phone MARILU ADEEL Primary Care Provider MEET HERNANDEZ Jewel Staker Assessment Encounter Date Assessment Date Assessment LastModified by Organization Details LastModified Time 06/19/2021 06/19/2021 EMG/NCV study independently assessed and personally reviewed with patient in the office today. Discussed that she has very minimal residual evidence of median neuropathy, significantly improved from her preoperative study. In addition, we once again discussed that her current upper arm symptoms are not consistent with carpal tunnel symptoms. Overall her wrist is doing better at this time as his or thumb following injection. Her biggest complaint remains her right upper arm neuropathic symptoms. Thus, x-rays of the cervical spine were obtained in the office today, which are consistent with degenerative disc disease. Plan to order an MRI of the spine to assess for cervical spine pathology and possible subsequent referral to neurosurgery pending results. She'll continue working on ongoing therapy for her hand and arm. She will continue work restrictions at this time. Follow-up upon completion of the cervical spine MRI to discuss results and make any additional treatment plans as needed moving forward. [email or web address] Not available 06/19/2021 18:28:56 06/27/2021 06/27/2021 MLF 1) Resolving hypersensitivity along the SBRN. 2) Improving tolerance to mechanical stress with essential job tasks. 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 In addition, we once again discussed that her current upper arm symptoms are not consistent with carpal tunnel symptoms. Overall her wrist is doing well at this time and so is her thumb following previous injection. Her biggest complaint remains her right upper arm neuropathic symptoms. Cervical spine x-rays demonstrated degenerative disc disease and concern is for cervical radiculopathy. Plan was to obtain an MRI for definitive assessment, but this was subsequently denied by Worker's Compensation as it was not felt to be related to her original work injury. While I agree that this is not related to the work injury for her wrist, she reports that symptoms began when working with therapy for treatment of her work-related wrist injury following surgery. Thus, current symptoms are directly related to treatment for her work-related condition. She states that she is also scheduled for an upcoming JOSE J as well. She does not feel that she can return to work to safely perform her normal job activities with her current upper arm symptoms, thus she will remain on modified work duty at this time pending appeal for approval of her MRI and her upcoming JOSE J evaluation. She will follow-up in 3-4 weeks for repeat evaluation and discuss additional treatment is needed at that time. 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 In addition, we once again discussed that her current upper arm symptoms are not consistent with carpal tunnel symptoms. Overall her wrist is doing well at this time and so is her thumb following previous injection. Her biggest complaint remains her right upper arm neuropathic symptoms. Cervical spine x-rays demonstrated degenerative disc disease and concern is for cervical radiculopathy. Plan was to obtain an MRI for definitive assessment, but this was subsequently denied by Worker's Compensation as it was not felt to be related to her original work injury. While I agree that this is not related to the work injury for her wrist, she reports that symptoms began when working with therapy for treatment of her work-related wrist injury following surgery. Thus, current symptoms are directly related to treatment for her work-related condition. However, subsequent appealed was also denied. Thus, we will proceed forward with MRI of her cervical spine and referral to neurosurgery thereafter under her own insurance. In regards to her hand she has reached MMI and can work without restrictions. Discussed that she may be limited due to her more proximal upper arm/neck symptoms, but that as far as her hand and wrist goes, she is cleared for all activities as tolerated. Patient will follow up in clinic on an as-needed basis should additional questions or concerns arise. [email or web address] Not available 08/09/2021 13:29:16 Plan of Treatment Reminders Order Date Submit Date Provider Last Modified By Organization Details Last Modified Time Details Appointments None recorded. Lab None recorded. Referral None recorded. Procedures None recorded. Surgeries None recorded. Imaging MRI, cervical spine, w/o contrast 2020 021 [email or web address] [id number] Not available 2 03:39:32 MRI, cervical spine, w/o contrast 2020 021 [email or web address] [email or web address] [id number] Not available 2 03:39:32 XR, cervical spine, 4 or 5 view 2020 021 [email or web address] [email or web address] [id number] Not available 2 03:39:26 Medication Orders None recorded. Patient TargetsNo targets recorded. Patient Instructions Encounter Date Encounter Id Patient Instructions Last Modified By Organization Details Last Modified Time 06/27/2021 [id number] STG 1) Improving functional AROM to within 80-90% of the unaffected within an appropriate time-frame from the injury/surgery. 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 4) Client will improve overall function and demonstrate this through the QuickDASH assessment when/if appropriate time frames are determined. Rehab potential is Good Plan of Care (POC: 1-2x/week for 4-6 weeks. Not available 06/27/2021 08:04:52 Reason for Referral None Reported. Results Created Date Observation Date Name Description Value Unit Range Abnormal Flag Note LastModifiedBy Organization Detail LastModifiedTime 06/19/20 21 06/19/2021 XR, cervi nidia spine , 4 or 5 view [place] n[facility] [address] [place] [address] [place]a Name: YOLANDA Stanley : [id number] Patiat[place] t Orderi ng Provid er: DARIEN ABRAMS EXAM DATE: 2020 EXAM: XR CERVIC AL COMPLE TE CLINIC AL INFORM ATION: Neck pain IMAGES PROVID ED: Comple te radiog raphic series of the cervic al spine. COMPAR ANDREE: None. FINDIN GS: Curvat ure, alignm ent, verteb ral body height s are normal . Multil evel disc space reduct ion is seen with anteri or and latera l osteop hytes. Forami na are well mainta ined and are normal . Facet joints are normal . No radiog raphic eviden ce of injury is noted. IMPRES ERASMO: Degene rative change s are seen in the cervic al spine. Interp reted By: Zak Gustafson MD Electr onical ly Signed By: Zak Gustafson MD on 021 2:33 PM [email or web address]_ [facility] [address] [place], [address], 05/30/2022 03:39:26 06/19/20 21 elect romyo gram + nerve condu ction study No observ ation record ed. [email or web address] Not Available 2020 07:30:35 Result Notes Documentation Provider Name and Address Organization Details Recorded Time Xr, Cervical Spine, 4 Or 5 View : [facility] [address] [place] [address] Patient Name: HEAVENLY BOWERS Patient : [id number] Patient Ordering Provider: JOSÉ MANUEL ABRAMS EXAM DATE: 06/19/2021 EXAM: XR CERVICAL COMPLETE CLINICAL INFORMATION: Neck pain IMAGES PROVIDED: Complete radiographic series of the cervical spine. COMPARISON: None. FINDINGS: Curvature, alignment, vertebral body heights are normal. Multilevel disc space reduction is seen with anterior and lateral osteophytes. Foramina are well maintained and are normal. Facet joints are normal. No radiographic evidence of injury is noted. IMPRESSION: Degenerative changes are seen in the cervical spine. Interpreted By: Yg Gustafson MD É MANUEL ABRAMS MD [address] [place] [address], [address], [facility] 06/19/2021 18:00:51 Problems Name Problem SNOMED Code Status Onset Date Resolution Date Notes Provider Name and Address Organization Details Recorded Time Low back pain 032682722 Active 2015 From Automated Load;Provi maulik: Chuck, Charmaine;Sta tus: Active Not Available [facility] 6 03:54:58 Pain of joint of wrist 864568427 Active 2015 From Automated Load;Provi maulik: Chuck, Charmaine;Sta tus: Active Not Available [facility] 6 03:54:58 Tension-t ype headache 960417958 Active 2015 From Automated Load;Provi maulik: Chuck, Charmaine;Sta tus: Active Not Available [facility] 6 03:54:58 Problem Notes None recorded. Procedures Surgical History Date Name Laterality Status Provider Name and Address Organization Details Recorded Time 03/05/20 21 OT Manual Therapy completed SID LEMUS/Jazmin, CHT [address] [place], [address], [facility] 03/05/2021 13:39:35 03/05/20 21 PT Iontophoresis completed SID LEMUS/Jazmin, CHT [address] [place], [address] 03/05/2021 13:39:35 03/05/20 21 PT Paraffin Bath completed SID LEMUS/Jazmin, CHT [address] [place], [address], [facility] 03/05/2021 13:39:35 02/29/20 21 OT Therapeutic Exercise completed SIDNEY RAMIREZ, OTR/L, CHT [address] [place], [address], [facility] 02/28/2021 13:58:55 02/29/20 21 OT Manual Therapy completed SIDNEY RAMIREZ, OTR/L, CHT [address] [place], [address], [facility] 02/28/2021 08:59:43 02/29/20 21 PT Iontophoresis completed SIDNEY RAMIREZ, OTR/L, CHT [address] [place], [address], [facility] 02/28/2021 08:59:43 02/29/20 21 PT Paraffin Bath completed SIDNEY RAMIREZ, OTR/L, CHT [address] [place], [address], [facility] 02/28/2021 08:59:43 02/29/20 21 PT Ultrasound completed SIDNEY RAMIREZ, OTR/L, CHT [address] [place], [address], [facility] 02/28/2021 08:59:43 02/27/20 21 OT Manual Therapy completed SIDNEY RAMIREZ, OTR/L, CHT [address] [place], [address], [facility] 02/26/2021 12:54:55 02/27/20 21 PT Iontophoresis completed SIDNEY RAMIREZ OTR/L, CHT [address] [place], [address], [facility] 02/26/2021 12:54:55 02/27/20 21 PT Paraffin Bath completed SIDNEY RAMIREZ, OTR/L, CHT [address] [place], [address], [facility] 02/26/2021 12:54:55 02/27/20 21 PT Ultrasound completed SIDNEY RAMIREZ, OTR/L, CHT [address] [place], [address], [facility] 02/26/2021 12:54:55 02/15/20 21 OT Manual Therapy completed SIDNEY RAMIREZ, OTR/L, CHT [address] [place], [address], [facility] 02/14/2021 12:56:44 02/15/20 21 PT Iontophoresis completed SIDNEY RAMIREZ, OTR/L, CHT [address] [place], [address], [facility] 02/14/2021 14:02:58 02/15/20 21 PT Paraffin Bath completed SIDNEY RAMIREZ, OTR/L, CHT [address] [place], [address], [facility] 02/14/2021 12:56:44 02/15/20 21 PT Ultrasound completed SIDNEY RAMIREZ, OTR/L, CHT [address] [place], [address], [facility] 02/14/2021 12:56:44 02/13/20 21 OT Manual Therapy cancelled SIDNEY RAMIREZ, OTR/L, CHT [address] [place], [address], [facility] 02/12/2021 11:11:39 02/13/20 21 PT Paraffin Bath cancelled SIDNEY RAMIREZ, OTR/L, CHT [address] [place], [address], [facility] 02/12/2021 11:11:39 02/13/20 21 PT Ultrasound cancelled SIDNEY RAMIREZ, OTR/L, CHT [address] [place], [address], [facility] 02/12/2021 11:11:39 02/08/20 21 OT Manual Therapy completed SIDNEY RAMIREZ, OTR/L, CHT [address] [place], [address], [facility] 02/07/2021 08:09:33 02/08/20 21 PT Paraffin Bath completed SIDNEY RAMIREZ, OTR/L, CHT [address] [place], [address], [facility] 02/07/2021 08:09:33 02/08/20 21 PT Ultrasound completed SIDNEY RAMIREZ, OTR/L, CHT [address] [place], [address], [facility] 02/07/2021 08:09:33 02/06/20 21 OT Manual Therapy completed SIDNEY RAMIREZ, OTR/L, CHT [address] [place], [address], [facility] 02/05/2021 13:46:56 02/06/20 21 PT Paraffin Bath completed SIDNEY RAMIREZ, OTR/L, CHT [address] [place], [address], [facility] 02/05/2021 11:30:55 02/06/20 21 PT Ultrasound completed SIDNEY RAMIREZ, OTR/L, CHT [address] [place], [address], [facility] 02/05/2021 11:30:55 02/01/20 21 OT Evaluation - Low complexity completed SIDNEY RAMIREZ, OTR/L, CHT [address] [place], [address], [facility] 01/31/2021 13:55:20 02/01/20 21 OT Manual Therapy completed SIDNEY RAMIREZ, OTR/L, CHT [address] [place], [address], [facility] 01/31/2021 14:52:35 02/01/20 21 PT Paraffin Bath completed SIDNEY RAMIREZ, OTR/L, CHT [address] [place], [address], [facility] 01/31/2021 13:55:30 02/01/20 21 PT Ultrasound completed SIDNEY RAMIREZ OTR/L, CHT [address] [place], [address], [facility] 01/31/2021 13:55:39 01/27/20 21 Injection Tendon Sheath/Ligament completed JOSÉ MANUEL ABRAMS MD [address] [place], [address], [facility] 01/26/2021 13:35:58 11/03/20 20 Injection Tendon Sheath/Ligament completed JOSÉ MANUEL ABRAMS MD [address] [place], [address] 11/03/2020 15:58:35 02/06/20 17 Op Note completed JOSÉ MANUEL ABRAMS MD [facility], [facility] [place], [address] 02/05/2017 13:37:57 01/31/20 17 Electromyography (EMG) with Nerve Conduction Study (NCV) completed Boni Alexander [facility] 01/30/2017 11:41:02 Imaging Results None recorded. Procedure Notes None recorded. Medical Equipment None Reported. Allergies Allergen ID Allergen Name Allergen Category Reaction Reaction Severity Criticality Documentation Date Start Date Code Code System Note Provider Name and Address Organization Details Recorded Time 589447 Neurontin medicatio n other Not available Not available 10/18/20162007 19002 8 RxNorm React ion: OTHER ; Comme nt: felt funny and sick; Creat ed By: Martha Lindquist ttLou fiore Date: 2007 10:17 :47 AM; Not Available [facility] 6 04:29:58 072298 Paxil medicatio n itching Not available Not available 10/18/20162010 89061 8 RxNorm React ion: ITCHI NG; Comme nt: Face and head itche s;Cre ated By: Tania thapaCre ated Date: 2010 10:18 :21 AM; Not Available [facility] 6 04:30:01 Medications Name Sig Start Date Stop Date Status Note LastModified by Organization Details LastModified Time Zithromax Z-Ras 250 mg tablet TAKE 2 TABLETS (500 MG) BY ORAL ROUTE ONCE DAILY FOR 1 DAY THEN 1 TABLET (250 MG) BY ORAL ROUTE ONCE DAILY FOR 4 DAYS 11/03 completed Not Available Not Available Not Available tramadol 50 mg tablet TAKE 1 TABL PO Q 4-6 HRS PRN FOR UNCONTROL LED PAIN 04/10 completed Not Available Not Available Not Available meloxicam 7.5 mg tablet TAKE 1 TABLE PO QD WITH FOOD REGARDLES S OF PAIN LEVEL FOR 1 WEEK. THEN TAKE 1 TABLET PO QD ONLY PRN FOR PAIN RELIEF THEREAFTE R 04/10 completed Not Available Not Available Not Available prednisone 5 mg tablets in a dose pack prednison e 5 mg tapering dose pack for 6 days 05/15 completed Not Available Not Available Not Available Manassas 5 mg-325 mg tablet TAKE 1-2 TABLETS EVERY 4-6 HOURS NEEDED FOR PAIN 01/20 completed Not Available Not Available Not Available cefdinir 300 mg capsule Take 1 capsule every 12 hours by oral route. 11/03 completed Not Available Not Available Not Available fluticasone propionate 50 mcg/actuati on nasal spray,suspe nsion Falconer 1 spray every day by intranasa l route for 1 day. 12/15 completed Not Available Not Available Not Available meloxicam 12/15 completed Not Available Not Available Not Available Vitamin D3 active Not Available Not Av ailable Not Available Vitals Date Recorded Body height Body mass index (BMI) Body weight Provider Name and Address Organization Details Last Updated DateTime 06/19/2021 154.94 cm 37 kg/m2 80346.1 g Miryam Mary Jo [facility] 06/19/2021 12:55:07 Date Recorded Body height Body mass index (BMI) Body weight Provider Name and Address Organization Details Last Updated DateTime 07/17/2021 154.94 cm 37 kg/m2 27667.1 g [facility] 07/17/2021 14:52:20 Date Recorded Body height Body mass index (BMI) Body weight Provider Name and Address Organization Details Last Updated DateTime 08/09/2021 154.94 cm 37 kg/m2 45262.1 [facility] 08/09/2021 13:00:48 Social History Question Answer Notes LastModified by Organizat ion Details LastModified Time Tobacco Smoking Status [facility]/28/2017 13:50:36 What Is Your Level Of Caffeine Consumption? Moderate Information not available 01/28/2017 Which Of Your Hands Is Dominant? Right Information not available 01/28/2017 Which Hand Is Involved? Bilateral Information not available 01/28/2017 Rate The Severity Of Your Symptoms: (0-10 With 0=none And 10=worst Possible) 4 Information not available 01/28/2017 When Are Your Symptoms The Worst? Night Day Neither Day Information not available 01/28/2017 Marital Status Single Informatio n not available 01/28/2017 Sex: Unknown Functional Status Question Answer Note LastModified by Organizat ion Details LastModified Time Do you use any illicit or recreational drugs? No Information not available 01/28/2017 What is your level of alcohol consumption? Occasional Information not available 01/28/2017 Are you currently employed? 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 Family History Relationship Description Onset Age of this Age Resolved Age Notes LastModified by Organization Details LastModified Time Mother Diabetes mellitus Not available 2016 13:50:29 Medical History Condition Response Allergies/Hayfever N Other N Anxiety/Depression N Gout N Thyroid Disease N Kidney Stones N Heart Conditions N Hernia N Hospitalizations N Migraines N COPD N Glaucoma N Pneumonia N Skin Problems N Immune System Disorder N Anesthesia Complications N Heart Attack (MA) N Mental Illness N Neurological Problems N Diabetes N Rheumatic Fever N Bleeding Disorder N Seizures/Epilepsy N Arthritis N Blood Clot N Tuberculosis N Genetic Disorder N AIDS/HIV N Cancer N Stroke N Asthma N Blood Thinners N Sleep Apnea N Alcohol Overuse/Alcohol Abuse N High Cholesterol N Liver Disease N Included as Review of Systems Y Hypertension Y Osteoporosis N Kidney Disease N Gynecological HistoryNo gynecological history recorded. Obstetrics History GPAL:G 0 P 0 0 0 0 Past Encounters Encounter ID Performer Location Encounter Start Date Encounter Closed Date Diagnosis/Indication Diagnosis SNOMED-CT Code Diagnosis ICD10 Code Diagnosis Note [id number] JOSÉ MANUEL ABRAMS MD ORTH[facility]ED[facility] [address] [place] [address] 01/28/2017 13:46:15 01/29/2017 16:34:47 Carpal tunnel syndrome 52800873 G56.01 G56.02 Clinical exam consistent with bilateral right>left CTS [id number] JUN ELKINS MD NEUROLOGY [facility] [address] [place] [address] 01/30/2017 11:11:07 01/30/2017 11:55:32 Bilateral carpal tunnel syndrome [id number] 8329525 G56.03 Moderate to severe right, Mild left [id number] JOSÉ MANUEL ABRAMS MD [facility] [address] [place] [address] 01/30/2017 14:05:10 01/30/2017 16:41:10 Bilateral carpal tunnel syndrome [id number] 9188131 G56.01 G56.02 EMG (01/30/17) damage states moderate to severe right carpal tunnel syndrome, mild left carpal tunnel syndrome, and no evidence of other focal nerve entrapment or cervical radiculopa thy. [id number] JOSÉ MANUEL ABRAMS MD SURGERY SCHEDULE [address] [place] [address] 02/05/2017 11:47:46 02/05/2017 11:59:56 [id number] JOSÉ MANUEL ABRAMS MD [facility] [address] [place] [address] 02/20/2017 15:08:25 02/20/2017 16:30:19 Postoperative care 427237824 Z48.89 2 weeks s/p R ECTR (02/05/17) Bilateral carpal tunnel syndrome [id number] 2465256 G56.01 G56.02 EMG (01/30/17) damage states moderate to severe right carpal tunnel syndrome, mild left carpal tunnel syndrome, and no evidence of other focal nerve entrapment or cervical radiculopa thy. [id number] JOSÉ MANUEL ABRAMS MD [facility] [address] [facility] [place] [address] 03/20/2017 14:16:07 03/20/2017 16:06:52 Postoperative care 098822842 Z48.89 6 weeks s/p R ECTR (02/05/17) Bilateral carpal tunnel syndrome 5659098691 3153742 G56.01 G56.02 EMG (01/30/17) damage states moderate to severe right carpal tunnel syndrome, mild left carpal tunnel syndrome, and no evidence of other focal nerve entrapment or cervical radiculopa thy. [id number] MIKAEL FORDE PA-C [facility] [address] [place] [address] 01/20/2020 16:30:19 01/20/2020 17:29:56 Otalgia of left ear 3175856376 269667 H92.02 Serous francois tis media of left ear 2686000635 386941 H65.92 [id number] MIKAEL FORDE PA-C [facility] [address] [place] [address] 02/03/2020 16:09:53 02/03/2020 17:47:27 Acute left otitis media 332302340 H66.92 [id number] JOSÉ MANUEL ABRAMS MD [facility] [address] [address] 11/03/2020 14:42:35 11/06/2020 14:01:48 Postoperative care 232422354 Z48.89 Previously s/p R ECTR (02/05/17) Bilateral carpal tunnel syndrome 0484421720 5253659 G56.02 EMG (01/30/17) demonstrat ed moderate to severe right carpal tunnel syndrome, mild left carpal tunnel syndrome, and no evidence of other focal nerve entrapment or cervical radiculopa thy. Previously s/p R ECTR (02/05/17) Radial sty loid tenosynovitis 98630440 M65.4 Right de Quervain's tenosynovi tis (CSI: 11/03/20) [id number] JOSÉ MANUEL ABRAMS MD [facility] [address] [place] [address] 12/15/2020 14:40:48 12/15/2020 16:29:43 Radial styloid tenosynovitis 18940868 M65.4 Right de Quervain's tenosynovi tis (CSI: 11/03/20) Postoperative care 49336 9007 Z48.89 Previously s/p R ECTR (02/05/17) Bilateral carpal tunnel syndrome 9791031404 0044559 G56.02 EMG (01/30/17) demonstrat ed moderate to severe right carpal tunnel syndrome, mild left carpal tunnel syndrome, and no evidence of other focal nerve entrapment or cervical radiculopa thy. Previously s/p R ECTR (02/05/17) [id number] JOSÉ MANUEL ABRAMS MD [facility] [address] [place] [address] 01/26/2021 12:46:02 01/26/2021 13:37:57 Radial styloid tenosynovitis 21834014 M65.4 Right de Quervain's tenosynovi tis (CSI: 01/26/21; 11/03/20) Postoperative care 59880 9007 Z48.89 Previously s/p R ECTR (02/05/17) Bilateral carpal tunnel syndrome 2657759784 0022662 G56.02 EMG (01/30/17) demonstrat ed moderate to severe right carpal tunnel syndrome, mild left carpal tunnel syndrome, and no evidence of other focal nerve entrapment or cervical radiculopa thy. Previously s/p R ECTR (02/05/17) [id number] SIDNEY RAMIREZ OTR/L, CHT PHYSICAL THERAPY / HAND THERAPY [facility] [address] [place] [address] 01/31/2021 13:38:47 01/31/2021 16:07:14 Tenosynovitis of right radial styloid [id number] M65.4 [id number] SIDNEY RAMIREZ OTR/L, CHT PHYSICAL THERAPY / HAND THERAPY [facility] [address] [place] [address] 02/05/2021 12:47:13 02/05/2021 15:39:42 Tenosynovitis of right radial styloid [id number] 1541129 M65.4 [id number] SIDNEY RAMIREZ OTR/L, CHT PHYSICAL THERAPY / [facility] THERAPY [facility] [address] [place] [address] 02/07/2021 12:30:26 02/07/2021 13:51:36 Tenosynovitis of right radial styloid 3346164851 9391465 M65.4 [id number] SIDNEY RAMIREZ, OTR/L, CHT PHYSICAL THERAPY / [facility]APY [facility] [address] [place] [address] 6 02/14/2021 13:00:56 02/14/2021 14:48:22 Tenosynovitis of right radial styloid 2632387675 7981549 M65.4 [id number] SIDNEY RAMIREZ, OTR/L, CHT PHYSICAL THERAPY / [facility]APY [facility] [address] [place] [address] 6 02/26/2021 13:16:15 02/26/2021 15:12:05 Tenosynovitis of right radial styloid 0427930610 6209381 M65.4 [id number] SIDNEY RAMIREZ, OTR/L, CHT PHYSICAL THERAPY / [facility]APY [facility] [address] [address] [place] [address] 6 02/28/2021 13:10:27 02/28/2021 14:18:46 Tenosynovitis of right radial styloid 0786149941 8919073 M65.4 [id number] SIDNEY RAMIREZ OTR/L, CHT PHYSICAL THERAPY / HAND THERAPY [facility] [address] [place], [place] [address] [place] [place] [address] 6 03/05/2021 13:40:07 03/05/2021 14:53:27 Tenosynovitis of right radial styloid [id number] M65.4 [id number] SIDNEY RAMIREZ OTR/L, CHT PHYSICAL THERAPY / [facility] TH[facility]APY [facility] [address] [place], [place] [address] [place] [address] 6 03/07/2021 13:35:33 03/07/2021 14:59:06 Tenosynovitis of right radial styloid 2982771519 3059322 M65.4 [id number] JOSÉ MANUEL ABRAMS MD ORTHOPEDI CS [facility] [address] [place] [address] 6 03/09/2021 12:43:57 03/09/2021 14:07:53 Radial styloid tenosynovitis 01433868 M65.4 Right de Quervain's tenosynovi tis (CSI: 01/26/21; 11/03/20) Postoperative care 87616 9007 Z48.89 Previously s/p R ECTR (02/05/17) Bilateral carpal tunnel syndrome [id number] 5370815 G56.02 EMG (01/30/17) demonstrat ed moderate to severe right carpal tunnel syndrome, mild left carpal tunnel syndrome, and no evidence of other focal nerve entrapment or cervical radiculopa thy. Previously s/p R ECTR (02/05/17) [id number] JOSÉ MANUEL ABRAMS MD SURGERY SCHEDULE [address] [place] [address] 03/28/2021 12:43:20 03/28/2021 12:44:09 [id number] SID LEMUS/L, CHT PHYSICAL THERAPY / HAND THERAPY [facility] [address] [place] [address] 03/30/2021 14:45:16 04/02/2021 08:03:16 Tenosynovitis of right radial styloid [id number] [id number] M65.4 1st [facility] Release [id number] SID LEMUS/L, CHT PHYSICAL THERAPY / HAND THERAPY [facility] [address] [facility] [place] [address] 04/10/2021 14:18:23 04/10/2021 15:31:06 Tenosynovitis of right radial styloid 8808345353 4003043 M65.4 1st [facility] Release [id number] BERNADETTE WAGONER PA-C ORTHOPEDI [facility] [address] [address] 04/10/2021 14:17:37 04/10/2021 14:40:41 Radial styloid tenosynovitis 07998958 M65.4 Right de Quervain's tenosynovi tis (CSI: 01/26/21; 11/03/20) Postoperative care 71633 9007 Z48.89 Now s/p Right first dorsal compartmen t release (DOS: 03/28/21) Previously s/p R ECTR (02/05/17) Bilateral carpal tunnel syndrome [id number] 3219278 G56.02 EMG (01/30/17) demonstrat ed moderate to severe right carpal tunnel syndrome, mild left carpal tunnel syndrome, and no evidence of other focal nerve entrapment or cervical radiculopa thy. Previously s/p R ECTR (02/05/17) [id number] JOSÉ MANUEL ABRAMS MD ORTHOPEDI [facility] [address] [place] [address] 04/17/2021 14:26:45 04/17/2021 16:02:23 Postoperative care [id number] Z48.89 3 weeks s/p Right first dorsal compartmen t release (DOS: 03/28/21) Previously s/p R ECTR (02/05/17) Carpal iona sasha syndrome 87260169 G56.02 EMG (01/30/17) demonstrat ed moderate to severe right carpal tunnel syndrome, mild left carpal tunnel syndrome, and no evidence of other focal nerve entrapment or cervical radiculopa thy. Previously s/p R ECTR (02/05/17) [id number] SID LEMUS/L, CHT PHYSICAL THERAPY / HAND THERAPY [facility] [address] [place] [address] 04/17/2021 16:18:55 04/18/2021 10:57:11 Tenosynovitis of right radial styloid 0259995955 4513501 M65.4 1st [facility] Release [id number] SID LEMUS/L, CHT PHYSICAL THERAPY / HAND THERAPY [facility] [address] [place] [address] 04/27/2021 15:34:01 04/30/2021 09:02:31 Tenosynovitis of right radial styloid 0610537070 8448812 M65.4 1st [facility] Release [id number] SID LEMUS/Jazmin, CHT PHYSICAL THERAPY / HAND THERAPY [facility] [address] [place] [address] 05/01/2021 14:29:58 05/01/2021 15:34:44 Tenosynovitis of right radial styloid 9657097164 6410850 M65.4 1st [facility] Release [id number] SID LEMUS/L, CHT PHYSICAL THERAPY / HAND THERAPY [facility] [address] [place] [address] 05/08/2021 14:16:11 05/08/2021 15:36:14 Tenosynovitis of right radial styloid 6804458600 6841237 M65.4 1st [facility] Release [id number] SID LEMUS/L, CHT PHYSICAL THERAPY / HAND THERAPY [facility] [address] [place] [address] 05/15/2021 14:38:39 06/06/2021 13:04:24 Tenosynovitis of right radial styloid 2832056423 5542802 M65.4 1st [facility] Release [id number] JOSÉ MANUEL ABRAMS MD ORTHOPEDI CS [facility] [address] [place] [address] 05/15/2021 14:38:03 05/15/2021 16:17:05 Postoperative care 853557934 Z48.89 7 weeks s/p Right first dorsal compartmen t release (DOS: 03/28/21) Previously s/p R ECTR (02/05/17) Carpal iona ssaha syndrome 47551180 G56.02 EMG (01/30/17) demonstrat ed moderate to severe right carpal tunnel syndrome, mild left carpal tunnel syndrome, and no evidence of other focal nerve entrapment or cervical radiculopa thy. Previously s/p R ECTR (02/05/17) Neuropathic pain 0737872 09 M79.2 Trigger th umb of right hand 5334523158 82825 M65.311 Right trigger thumb CSI: 05/15/21 [id number] SID LEMUS/Jazmin, CHT PHYSICAL THERAPY / HAND THERAPY [facility] [address] [place] [address] 05/18/2021 14:28:40 05/18/2021 15:48:06 Tenosynovitis of right radial styloid 1828922883 8102868 M65.4 1st [facility] Release [id number] SID LEMUS/Jazmin, CHT PHYSICAL THERAPY / HAND THERAPY [facility] [address] [place] [address] 05/30/2021 13:58:23 05/30/2021 15:09:07 Tenosynovitis of right radial styloid 3237518121 0290819 M65.4 [facility] Release [id number] SID LEMUS/L, CHT PHYSICAL THERAPY / HAND THERAPY [facility] [address] [place] [address] 06/04/2021 13:33:51 06/04/2021 15:30:22 Tenosynovitis of right radial styloid 6850042316 0527317 M65.4 1st [facility] Release [id number] DESIREE SHEETS MD NEUROLOGY [facility]OS[facility] [address] [place] [address] 06/19/2021 10:35:56 06/19/2021 11:56:17 Carpal tunnel syndrome of right wrist 7568750793 28308 G56.01 Pain in right arm 049925 004 M79.429 [id number] SID LEMUS/L, T PHYSICAL THERAPY / HAND THERAPY [facility] [address] [place] [address] 06/19/2021 12:49:40 06/20/2021 09:45:54 Tenosynovitis of right radial styloid 1153783284 4995126 M65.4 [facility] Release [id number] JOSÉ MANUEL ABRAMS MD ORTHOPEDI [facility] [address] [place] [address] 06/19/2021 12:49:09 06/19/2021 13:47:52 Postoperative care 327169969 Z48.89 12 weeks s/p Right first dorsal compartmen t release (DOS: 03/28/21) Previously s/p R ECTR (02/05/17) Neuropathic pain 4241946 09 M79.2 X-ray of the cervical spine reveals loss of normal lordosis with evidence of degenerati ve disc disease Trigger th umb of right hand 7250640627 56468 M65.311 Right trigger thumb CSI: 05/15/21 Carpal iona sasha syndrome 97402127 G56.02 Postoperat woo EMG/NCV (06/19/21) reveals very mild residual right carpal tunnel syndrome affecting the sensory fibers only, significan tly improved from preoperati ve study. EMG (01/30/17) demonstrat ed moderate to severe right carpal tunnel syndrome, mild left carpal tunnel syndrome, and no evidence of other focal nerve entrapment or cervical radiculopa thy. Previously s/p R ECTR (02/05/17) [id number] SIDNEY RAMIREZ, OTR/L, CHT PHYSICAL THERAPY / HAND THERAPY [facility] [address] [place] [address] 06/27/2021 12:52:06 06/27/2021 16:12:03 Tenosynovitis of right radial styloid 1294866601 6696724 M65.4 1st [facility] Release [id number] JOSÉ MANUEL ABRAMS MD ORTHOPEDI CS [facility] [address] [place] [address] 07/17/2021 13:45:02 07/17/2021 15:54:41 Postoperative care 749539922 Z48.89 3.5 months s/p Right first dorsal compartmen t release (DOS: 03/28/21) Previously s/p R ECTR (02/05/17) Neuropathic pain 8741630 09 M79.2 X-ray of the cervical spine reveals loss of normal lordosis with evidence of degenerati ve disc disease Trigger th umb of right hand 6827906624 04886 M65.311 Right trigger thumb CSI: 05/15/21 Carpal iona sasha syndrome 60288021 G56.02 Postoperat woo EMG/NCV (06/19/21) reveals very mild residual right carpal tunnel syndrome affecting the sensory fibers only, significan tly improved from preoperati ve study. EMG (01/30/17) demonstrat ed moderate to severe right carpal tunnel syndrome, mild left carpal tunnel syndrome, and no evidence of other focal nerve entrapment or cervical radiculopa thy. Previously s/p R ECTR (02/05/17) [id number] JOSÉ MANUEL ABRAMS MD ORTHOPEDI CS [facility] [address] [place] [address] 08/09/2021 12:56:30 08/09/2021 15:09:55 Postoperative care 505314691 Z48.89 3.5 months s/p Right first dorsal compartmen t release (DOS: 03/28/21) Previously s/p R ECTR (02/05/17) Trigger th umb of right hand 1161423981 60390 M65.311 Right trigger thumb CSI: 05/15/21 - currently resolved Carpal iona sasha syndrome 79392426 G56.02 Postoperat woo EMG/NCV (06/19/21) reveals very mild residual right carpal tunnel syndrome affecting the sensory fibers only, significan tly improved from preoperati ve study. EMG (01/30/17) demonstrat ed moderate to severe right carpal tunnel syndrome, mild left carpal tunnel syndrome, and no evidence of other focal nerve entrapment or cervical radiculopa thy. Previously s/p R ECTR (02/05/17) Cervical radiculopathy 83993209 M54.12 X-ray of the cervical spine reveals loss of normal lordosis with evidence of degenerati ve disc disease Health Concerns Section Related Observation LastModified by Organization Detai ls LastModified Time None Recorded Concern Status LastModified by Organization Details LastModified Time None Recorded Advance Directives Directive None Recorded Payers Insurance Date Sequence Insurance Name Policy Number Policy Dempsey Covered Member ID Dempsey Member ID Guarantor Name 05/15/2021 [employer] (MOVED TO HOLD) Heavenly Bowers 11/14/2021 1 [place] [id number] Heavenyl Bowers [id number] Heavenly Bowers 05/15/2021 1 [place] [id number] Heavenly Bowers [id number] Heavenly Bowers 10/14/2018 PAYMENT PLAN Heavenly Bowers 04/02/2021 JOE - [employer] Heavenly Bowers 11/11/2021 1 [place] [id number] Heavenly Bowers [id number] Heavenly Bowers 04/04/2025 PAYMENT PLAN Heavenly Bowers Notes Date Note Type Note Provider Name and Address Organization Details Recorded Time 06/19/2021 text/html Patient reports continued diffuse burning pain throughout the right upper arm starting around her neck and shoulder blade area and radiating down the arm to the elbow. Reports very minimal intermittent numbness and tingling in the right hand. Reports again that her upper arm symptoms began after initiation of therapy. Reports that right trigger thumb injection at last visit helped, but with some mild recurrent pain at this time although no triggering. Primary Care Physician: Dr. Joellen Farias Hand dominance: Right Location: Right Hand Pain level: Date of injury: 08/04/20 Duration: 10 month(s) Recent Surgery: Yes Procedure: RT 1ST DC RELEASE Date of surgery: 03-28-2021 Previous upper extremity surgery? 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 No Is this injury associated with a Workers Compensation claim? Yes Patient arrives for recheck and to discuss EMG results. She states all her symptoms have stayed the same since her last visit. JOSÉ MANUEL ABRAMS MD [address] [place], [address], [facility] 06/19/2021 18:29:34 06/19/2021 text/html Patient History: Pt reports that she is doing well overall today. Pain (0-10): Mild with certain motions. Pain in last 24 hours (0-10: How often symptoms experienced Constantly (76-100%), Frequently (51-75%), Occasionally (26-50%), Intermittently (0-25%): Intermittent DOI: DOS: 03-28-2021 Performance Deficits: Pt reports having at least 3 performance deficits that are limiting ADL and IADL functional secondary to having hand/arm surgery/injury. SIDNEY RAMIREZ, OTR/L, CHT [address] [place], [address], [facility] 06/19/2021 14:49:42 06/27/2021 text/html Patient History: Pt reports that she has no additional c/o pain or irritation today. Pain (0-10): Mild with certain motions. Pain in last 24 hours (0-10: How often symptoms experienced Constantly (76-100%), Frequently (51-75%), Occasionally (26-50%), Intermittently (0-25%): Intermittent DOI: DOS: 03-28-2021 Performance Deficits: Pt reports having at least 3 performance deficits that are limiting ADL and IADL functional secondary to having hand/arm surgery/injury. SIDNEY RAMIREZ, OTR/L, CHT [address] [place], [address], [facility] 06/27/2021 14:00:57 07/17/2021 text/html Patient continue s to report diffuse burning pain throughout the right upper arm starting around her neck and shoulder blade area and radiating down the arm to the elbow. Reports very minimal intermittent numbness and tingling in the right hand. Reports again that her upper arm symptoms began after initiation of therapy. Reports that right trigger thumb injection has continued to help with minimal pain, although she has developed a focal cyst over the thumb A1 ann. Primary Care Physician: Dr. 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 She states all her symptoms have stayed the same since her last visit. Pt was supposed to have an MRI done but the workers comp claim would not cover it. JOSÉ MANUEL ABRAMS MD [address] [place], [address], [facility] 07/19/2021 19:24:01 08/09/2021 text/html Patient continue s to report diffuse burning pain throughout the right upper arm starting around her neck and shoulder blade area and radiating down the arm to the elbow. Reports very minimal intermittent numbness and tingling in the right hand. Reports again that her upper arm symptoms began after initiation of therapy. Reports that right trigger thumb injection has continued to help with minimal pain and no triggering at this time. I sent him to feel for approval to attempt to get approval for MRI of her cervical spine, but this has been subsequently denied again. Primary Care Physician: Dr. 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 States that the pain increases with simple tasks like holding her phone and washing her hands. States that it's more of a burning sensation present. JOSÉ MANUEL ABRAMS MD [address] [place], [address], [facility] 08/09/2021 13:29:26 OBGyn Episode No OBEpisode recorded.
[2025-05-11 12:14] LABS: Estradiol 38.1 pg/mL (.); LH 3.9 mIU/mL (.); Progesterone 2.3 ng/mL (.); Testosterone,Total <3 ng/dL (4-50)
== END 2025-05-10 23:59 | disposition home or self-care (01) ==
LOC: LAB.DROPOF 05-11 10:34
PROVIDERS: PCP Nurse Practitioner Family; Visit Provider Nurse Practitioner Family
DX: R23.2 Flushing (principal); R73.03 Prediabetes; R63.5 Abnormal weight gain
CPT/HCPCS: 80053; 80061; 82670; 83001; 83002; 83036; 84144; 84402; 84403; 84443

== ENCOUNTER 2025-06-08 10:42 | Outpatient (CLI) | payer BC, SELFPAY ==
[2025-06-08 08:46] VITALS: BMI 33.0
--- OUTSIDE RECORDS SUMMARY | 2025-06-08 10:45 | XMS_ITS ---
Author Organization Unknown Medications Medication Instructions Effective Dates (start - stop) Status escitalopram 10 MG Oral Tablet 2 [id number]:00:00.000+00:0 0 - Completed ondansetron 4 MG Oral Tablet 01-23-1500:00:00.000+00:0 0 - Completed celecoxib 200 MG Oral Capsule 16-01-0800:00:00.000+00:0 0 - Completed phentermine hydrochloride 37 .5 MG Oral Tablet [id number]:00:00.000+00:0 0 - Completed cyclobenzaprine hydrochlorid e 10 MG Oral Tablet [id number]:00:00.000+00:0 0 - Completed gabapentin 100 MG Oral Capsule 2 128-21-22G80:00:00.000+00:0 0 - Completed diclofenac sodium 75 MG Wanda yed Release Oral Tablet [id number]:00:00.000+00:0 0 - Completed gabapentin 100 MG Oral Capsule 2 402-97-30O56:00:00.000+00:0 0 - Completed phentermine hydrochloride 37 .5 MG Oral Tablet [id number]:00:00.000+00:0 0 - Completed phentermine hydrochloride 37 .5 MG Oral Tablet [id number]:00:00.000+00:0 0 - Completed escitalopram 5 MG Oral Tablet 15-04-01:00:00.000+00:0 0 - Completed amoxicillin 875 MG / clavula marilu 125 MG Oral Tablet [id number]:00:00.000+00:0 0 - Completed Patient Care team information Name Category Status Period Participants - - Proposed period not known -
--- NOTE | 2025-06-08 11:20 | ECG_ITS ---
APPROVED REPORT Exam: Resting ECG HR:65 bpm ECG Measurements Heart Rate 65 AXES PA 150 P 57 QRSd 83 QRS 86 QT 377 T 43 QTc 389 Conclusion SINUS RHYTHM LOW QRS VOLTAGE IN PRECORDIAL LEADS [QRS DEFLECTION < 1.0 mV IN CHEST LEADS] BORDERLINE ECG UNCONFIRMED REPORT Electronically signed by : Ravinder Carlos MD 06/13/2025 08:02:21
[2025-06-08 11:30] LABS: Hematocrit 40.6 % (37.0-47.0); Hemoglobin 13.5 g/dL (12.2-16.2); Immature Granulocytes % 0.2 %; Mean Corpuscular HGB Conc 33.3 g/dL (31.8-35.4); Mean Corpuscular Hemoglobin 29.4 pg (27.0-31.2); Mean Corpuscular Volume 88.5 fl (81-99); Nucleated Red Blood Cells % 0 %; Platelet Count 312 K/mm3 (142-424); Red Blood Count 4.59 M/mm3 (4.20-5.40); Red Cell Distribution Width-SD 40.9 fL; White Blood Count 4.8 K/mm3 (4.8-10.8)
[2025-06-08 11:43] LABS: Anion Gap 13.7 mEq/L (5-15); Blood Urea Nitrogen 10 mg/dl (7-17); Calcium 9.1 mg/dl (8.4-10.2); Carbon Dioxide 28 mmol/L (22.0-30.0); Chloride 101 mmol/L (98-107); Creatinine Clearance Estimated 104 mL/min (50-200); Creatinine,Serum 0.80 mg/dl (0.52-1.04); Estimated Glomerular Filt Rate 76 ml/min (>60); GFR (African American) 92 ML/MIN (>60); Glucose 93 mg/dl (74-100); Potassium 3.7 mmoL/L (3.5-5.1); Sodium 139 mmol/L (136-145)
== END 2025-06-08 23:59 | disposition home or self-care (01) ==
LOC: PREOP 10:43
PROVIDERS: PCP Nurse Practitioner Family; Visit Provider Surgery
DX: Z01.810 Encounter for preprocedural cardiovascular examination (principal); Z01.812 Encounter for preprocedural laboratory examination; R94.31 Abnormal electrocardiogram [ECG] [EKG]
CPT/HCPCS: 80048; 85025; 93005

== ENCOUNTER 2025-06-16 07:09 | Day surgery (SDC) | payer BC, SELFPAY ==
--- NOTE | 2025-06-08 10:31 | SUR.PREOP ---
Pt no-show for PAT appointment. Left VM. BJ in Dr. Estrella's office notified.
[2025-06-08 15:18] VITALS: BMI 33.4
[2025-06-16] VITALS (10 sets, daily range): BP systolic 101–125; BP diastolic 60–71; PULSE 60–94; RESP 16–18; TEMP 36.4; O2SAT 96–100
[2025-06-16] MEDS: 0.9 % SODIUM CHLORIDE 1000ML 1,000 ML 25 ML IV (07:44)
[2025-06-16] MEDS: LIDOCAINE 1% 20ML MDV 20 ML (08:14)
--- NOTE | 2025-06-16 08:19 | P.PNANES_ITS ---
[facility] Disclaimer: The information contained in this section may have been updated after the patient was seen, as this information can be updated by other users. Medical History Body mass index [BMI] 40.0-44.9, adult Osteochondral lesion Surgical History History of carpal tunnel surgery Hx of tonsillectomy History of surgery on arm Family History Other Diabetes Social History Smoking Status: Never smoker alcohol intake: never substance use type: denies use current occupational status: employed Travel in the last 8 weeks?: None Have you lived/traveled outside [place] in past 30 days?: No Contact w/someone who lives/traveled outside US past 30 days?: No Exposure to someone with infectious disease in past 14 days?: No Do you have a fever (greater than 100.4 F or 38 C)?: No Have you tested positive for COVID-19?: No Exposed to someone with COVID-19 in past 14 days?: No Do you have a sore throat?: No Do you have a cough?: No Do you have any weakness?: No Do you have any diarrhea?: No Are you experiencing any unusual bleeding?: No Do you have any muscle aches/pain?: No Do you have any abdominal pain?: No Are you experiencing loss of taste or smell?: No [facility] Anesthesia Checklist Patient Identification Patient Identification: Verbal (Name & ) Structural Data Admitted From: Home Planned Operative Procedure/s: excision neoplsm lle NPO Status Verified Time NPO: 00:00 Additional verifications Anesthesia Reactions: No Hx Blood Transfusions: No Blood Transfusion Reaction: No Airway Assessment Mallampati Score:: Class II C-Spine Mobility Assessed: Yes TMJ Mobility Assessed: Yes Dentition: Good Dentition Neurological Assessment Level of Consciousness: Awake, Alert and Appropriate Anesthesia Plan Anesthesia Risk discussed: Yes Anesthesia Plan: Verified ASA Class: II Anesthesia Type: General
--- NOTE | 2025-06-16 08:28 | P.OP_ITS ---
Date of procedure: 06/16/25 Pre-op Diagnosis:: 1.5 cm left lower extremity lipoma Post-op Diagnosis:: Same Procedure performed:: Excision of 1.5 cm lipoma Surgeon:: Vignesh Estrella MD Anesthesia: local and LMA Estimated blood loss (mL): 5 Operative findings:: Lesion excised in toto Operative note:: After informed consent was obtained the patient was taken to the operating room and placed in the supine position. General anesthesia with laryngeal mask airway was achieved. Her mid left lower extremity was prepped and draped in a sterile fashion. An incision was made over the palpable lesion along the lateral distal thigh. A combination of blunt dissection, sharp dissection, and electrocautery was utilized to transect around the palpable fatty tumor . The lesion was excised in toto and passed off for pathologic evaluation. Electr ocautery was utilized to achieve hemostasis and skin was then closed with interrupted 4-0 Monocryl in a subcuticular fashion. Steri-Strips were applied and the patient was transferred recovery in stable condition. Condition: stable Disposition: PACU Specimens:: Left lower extremity lipoma Complications:: No immediate
--- NOTE | 2025-06-16 08:32 | EXP.ANES.I ---
[facility] Anesthesia Record Part I Anesthesia Record I Intake, IV Amount: 500 Hydration: Adequate Estimated blood loss (mL): 0 Urine output (mL): 0 Blood Pressure: 125/60 SaO2: 96 Pulse Rate: 94 Airway Patency: Patent Respiratory Rate: 16 Temperature: 97.5 F Patient is:: Awake and Stable Stable to PACU at:: 08:30
--- NOTE | 2025-06-16 10:15 | P.PNANES_ITS ---
[facility] Anesthesia Record Part II Anesthesia Record Part II Discharge Time: 09:00 Destination: Surgical Day Care (OP Surgery) PACU nurse assessment reviewed?: Yes Patient Condition:: Good Anesthesia Complications:: None Swallowing reflex intact?: Yes Airway Patency: Patent Cyanosis?: No Blood Pressure: 111/68 SaO2: 100 Respiratory Rate: 18 Pulse Rate: 68 Temperature: 97.5 F Mental Status: Alert & Oriented Pain level:: 0 Nausea and/or vomitting:: None Intake, IV Amount: 0 Hydration: Adequate
== END 2025-06-16 09:45 | disposition home or self-care (01) ==
PROVIDERS: PCP Nurse Practitioner Family; Visit Provider Surgery
PROC: (CPT 27327; principal; 2025-06-16 08:45)
DX: D17.24 Benign lipomatous neoplasm of skin and subcutaneous tissue of left leg (principal); Z88.6 Allergy status to analgesic agent; Z79.85 Long-term (current) use of injectable non-insulin antidiabetic drugs
CPT/HCPCS: 27327; 96374; J0690; J1100; J2003; J2250; J2405; J2704; J3010; J7030

== ENCOUNTER 2025-10-04 09:34 | Day surgery (SDC) | payer BC, SELFPAY ==
[2025-10-04 09:43] VITALS: BP 90/59; PULSE 69; RESP 16; TEMP 36.3; O2SAT 100; BMI 32.8
[2025-10-04 09:49] VITALS: BP 109/61; PULSE 74; RESP 18; O2SAT 99
[2025-10-04] MEDS: LIDOCAINE 1% 5ML PF VIAL 5 ML (09:50)
[2025-10-04] MEDS: BUPIVACAINE 0.25% 10ML INJ 25 MG IJ (09:50)
[2025-10-04 09:53] VITALS: BP 109/61; PULSE 74; RESP 18; O2SAT 99
--- NOTE | 2025-10-04 09:53 | EXP.PAIN.PRO ---
Procedure Date: 10/04/25 Time: 09:30 Anesthesiologist:: Freeman Damian CRNA Complications:: None Pre-procedure Diagnosis:: Right sacroiliitis Post-procedure Diagnosis:: Same Indications for Procedure:: Patient is a very pleasant 50-year-old female comes to clinic today for right sacroiliac joint injection of diagnostic local anesthetic. She describes right posterior hip pain as well as right low lumbar back pain. Difficulty transitioning from sitting to standing. Difficulty with ambulation due to the right posterior hip pain. She rates her pain 8/10. Procedure Details:: Procedure: Right sacroliliac joint injection under fluoroscopy Informed consent was obtained and the risk and benefits of the procedure were explained to the patient.~ The patient was taken to the procedure room and noninvasive monitors were placed including noninvasive blood pressure cuff and pulse oximeter.~ The patient was placed prone on the procedure table.~ The~ right hip was cleansed using Betadine as a cleansing solution.~ C-arm fluorosocpy was used to view the right SI joint.~ The skin and subcutaneous tissues were anesthetized using Lidocaine 1.5% and a 25-gauge needle.~ After this, a 22-gauge spinal needle was inserted under fluoroscopic guidance into the inferior aspect of the right SI joint.~ Omnipaque dye was injected and a good spread was seen throughout the joint.~ After this, approximately 5 mL of bupivacaine 0.25% was incrementally injected into the sacroiliac joint.~ The patient tolerated the procedure well with no complications.~ The patient was observed in the Pain Clinic, then discharged home neurologically intact.~ Plan and Disposition:: Patient was discharged without incident.
[2025-10-04 09:55] VITALS: BP 106/62; PULSE 71; RESP 16; O2SAT 91
== END 2025-10-04 09:55 | disposition home or self-care (01) ==
PROVIDERS: PCP Nurse Practitioner Family; Visit Provider Nurse Anesthetist, Certified Registered
DX: M46.1 Sacroiliitis, not elsewhere classified (principal)
CPT/HCPCS: 27096; J0665; J2003